=== PATIENT | male | born 1950 | race Caucasian/White ===

== ENCOUNTER 2019-01-28 12:29 | Inpatient (IN) ==
[2019-01-28] MEDS ORDERED: NS 1,000 ML IV ONE (13:06)
[2019-01-28] MEDS ORDERED: ASPIRIN PO ONE (13:06)
[2019-01-28 13:18] LABS: BASO# 0.03 X1000 (0.0-0.2); BASO% 0.5 % (0.0-0.8); EOS# 0.07 X1000 (0.0-0.7); EOS% 1.1 % (0.0-10.0); HEMATOCRIT 43.4 % (42.0-52.0); IMM GRAN# 0.02 X1000 (0.0-0.04); IMM GRAN% 0.3 % (0.0-0.5); LYMPH# 1.67 X1000 (1.2-3.4); LYMPH% 26.7 % (20.5-51.1); MCH 30.5 PG (27-31); MCHC 34.6 g/dL (33-37); MCV 88.2 FL (81-99); MONO# 0.66 X1000 (0.11-0.59); MONO% 10.5 % (1.7-9.3); MPV 10.3 FL (7.4-10.4); NEUT# 3.81 X1000 (1.4-6.5); NEUT% 60.9 % (42.2-75.2); PLT 231 X1000 (130-400); RBC 4.92 XMIL (4.7-6.1); RDW 13.9 % (11.5-14.5); WBC 6.26 X1000 (4.8-10.8)
[2019-01-28 13:40] LABS: INR 0.97; PROTIME 13.4 Seconds (11.0-16.0)
[2019-01-28 13:41] LABS: PTT 28.9 Seconds (22.3-41.8)
--- NOTE | 2019-01-28 13:50 | EKG Report ---
Test Performed on : 01/28/2019 12:37:27 PM Test Reason : CVA Blood Pressure : / mmHG Vent. Rate : 113 BPM Atrial Rate : 113 BPM P-R Int : 148 ms QRS Dur : 080 ms QT Int : 332 ms P-R-T Axes : 079 080 069 degrees QTc Int : 455 ms Sinus tachycardia. with premature atrial complexes. Otherwise normal ECG No previous ECGs available Unconfirmed Result
--- NOTE | 2019-01-28 13:55 | Diag Imaging Result Doc PS360 ---
EXAM: CT HEAD W/O CONTRAST - 01/28/2019 HISTORY: stroke symptoms TECHNIQUE: CT head without contrast COMPARISON: None. FINDINGS: There is no evidence of intracranial hemorrhage, mass effect, midline shift, or hydrocephalus. There is a chronic appearing lacunar infarct at the left caudate nucleus. There are two subtle small low-density areas at the left parietal lobe which may represent small infarcts, the ages of which are nonspecific. There are some atherosclerotic calcifications noted at the base of the brain. There is no evidence of skull fracture. Visualized portions of paranasal sinuses and mastoid air cells appear clear. IMPRESSION: Apparent old lacunar infarct at left caudate nucleus. Suggestion of small infarcts at left posterior parietal lobe. These are of nonspecific ages, but could be recent. If further imaging evaluation is desired, MRI is recommended. No hemorrhage or mass effect. This exam was performed using automated exposure control, adjustment of mA or kV according to patient size, and/or use of iterative reconstruction technique. Electronically signed by Willian Valladares 01/28/2019 1:53 PM
--- NOTE | 2019-01-28 13:57 | Diag Imaging Result Doc PS360 ---
EXAM: CHEST-PORTABLE - 01/28/2019 HISTORY: CVA TECHNIQUE: Portable chest COMPARISON: 01/28/2019 FINDINGS: Heart size is normal. The lungs appear essentially clear. There is no pleural effusion or pneumothorax identified. IMPRESSION: No evidence of acute disease. Electronically signed by Willian Valladares 01/28/2019 1:54 PM
[2019-01-28 13:58] LABS: AGAP 13; ALBUMIN 4.3 g/dL (3.5-5.0); ALKALINE PHOSPHATASE 94 U/L (32-122); BUN 10 mg/dL (8-22); CALCIUM 9.1 mg/dL (8.8-10.2); CHLORIDE 99 mmol/L (98-107); COSMO 277; ESTIMATED GFR > 60; GLUCOSE 142 mg/dL (70-104); GOT 19 U/L (10-34); GPT 24 U/L (10-44); MAGNESIUM 1.8 mg/dL (1.5-2.7); POTASSIUM 4.4 mmol/L (3.5-5.1); SODIUM 138 mmol/L (136-145); TCO2 26 mmol/L (25-35); TOTAL PROTEIN 6.5 g/dL (6.3-8.3)
--- NOTE | 2019-01-28 15:04 | PROVIDER DOCUMENTATION ---
This chart was entered by Gemini Bishop Scribe, acting as scribe for Guy Dugan MD. HPI-Neurological Disorder - General Chief Complaint: Stroke-Like Symptoms Stated Complaint: POSS STROKE Time Seen by Provider: 01/28/19 12:36 Source: patient, family ( and daughter) Allergies/Adverse Reactions: Patient Allergies Allergy/AdvReac Type Severity Reaction Status Date / Time Penicillins Allergy ANAPHYLAXIS Verified 01/28/19 12:43 - History of Present Illness-Neuro Nature of Presenting Problem: 68 yowm presents to the ed via pov with and daughter. sts pt has been having burning AKINS and rt sided weakness and unable to ambulate normally intermittently for 1 month. pt was working outside yesterday and got hot and sx worsened. sts weakness was more predominate and took longer to resolve then has in the past. pt on exam is a/o x4 and can follow commands and answer all questions without difficulty. Headache Location: reports: frontal Severity: reports: moderate Onset/Duration: reports: other (1 month) Timing: reports: intermittent Context: reports: facial droop (mild), falling Approximate time patient was last seen normal?: 00:00 (1 month prior) Character of Altered Mental Status: reports: N/A Any recent trauma/injury?: reports: none Character of Deficits: reports: new weakness New weakness or altered sensation location:: reports: RUE, RLE, right facial Cognitive Baseline: alert, oriented x3 Gait Baseline: walks without assistance Associated Symptoms: reports: short of breath, headache, numbness in legs/feet, weakness. denies: slurred speech, vomiting Similar Symptoms Previously?: Yes (for last month) Recently seen or treated by another doctor?: No Review of Systems - Adult - REVIEW OF SYSTEMS - ADULT ROS:: ROS per family () Constitutional: denies: chills, fever Eyes: denies: blurred vision, double vision Ears, Nose, Mouth & Throat: reports: no symptoms reported Cardiovascular: denies: chest pain, palpitations Respiratory: reports: shortness of breath. denies: cough, wheezing Gastrointestinal: denies: abdominal pain, diarrhea, nausea, rectal bleeding Genitourinary: reports: no symptoms reported Musculoskeletal: reports: see HPI, muscle weakness. denies: back pain, neck pain Integumentary: reports: no symptoms reported Neurological: reports: see HPI, headache/migraines. denies: dizziness/vertigo, slurred speech Psychiatric: reports: no symptoms reported Endocrine: reports: no symptoms reported Hematologic/Lymphatic: reports: no symptoms reported Allergic/Immunologic: reports: no symptoms reported All Other Systems: Reviewed and Negative Past History - Adult - PAST MEDICAL HISTORY-ADULT Review of Records: reports: Old Records Reviewed, Nursing Assessment Review, Medications Reviewed, Social history reviewed & non-contributory. Major Childhood Illnesses: reports: denies history Cardiovascular: reports: HTN Respiratory: reports: denies history Gastrointestinal: reports: denies history Genitourinary: reports: denies history Musculoskeletal: reports: denies history Hand Dominance: Right Handed Neurological: reports: denies history Psychiatric: reports: denies history Endocrine/Immune: reports: Diabetes Diabetes Type: Type 2 Other Conditions: reports: denies history - PRIOR SURGERIES/PROCEDURES Surgical/Procedure History: reports: reviewed, not pertinent - IMMUNIZATION STATUS Childhood Immunizations: See Nurse Assessment Flu Vaccine: See Nurse Assessment - FAMILY HISTORY Family History: reviewed, not pertinent - SOCIAL HISTORY Smoking: denies Substance Use: denies Living Situation: family Physical Exam- Neurological - Physical Exam-Neuro Initial Vital Signs Reviewed: Yes General Appearance: appears well, alert, obese Eye Exam: bilateral eye: normal inspection, PERRL, EOMI HENMT: moist mucous membranes, normal ENT inspection Head Injury: no evidence of injury Neck: non-tender, full range of motion, normal inspection. 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 Exam: normal hearing, normal speech, PERRL, facial weakness (minimal on lower rt sided) Coordination/Gait: negative: normal gait (drags rt foot) Motor/Sensory: pronator drift (R) (mild), pronator drift (L) (mild), weak motor strength RUE (3/5), weak motor strength RLE Neurologic: rn family practice II-XII nml as tested, facial droop (mild weak right angle mouth) , motor weakness Integumentary: normal color, normal turgor, warm/dry Psych/Mental Status: oriented x 3 - Glascow Coma Scale Best Eye Response: (4) open spontaneously Best Verbal Response: (5) oriented Best Motor Response: (6) obeys commands Progress - PLAN OF CARE/RESULTS Progress/Plan/Lab Results: Vital Signs - 8 hr 01/28/19 12:35 Temperature 98.0 F Pulse Rate 109 H Respiratory Rate 17 Blood Pressure 148/108 O2 Sat by Pulse Oximetry 96 Laboratory Results - last 24 hr 01/28/19 01/28/19 01/28/19 12:45 12:45 12:45 WBC 6.26 RBC 4.92 Hgb 15.0 Hct 43.4 MCV 88.2 MCH 30.5 MCHC 34.6 RDW Std Deviation 13.9 Plt Count 231 MPV 10.3 Immature Gran % (Auto) 0.3 Neut % (Auto) 60.9 Lymph % (Auto) 26.7 Foard % (Auto) 10.5 H Eos % (Auto) 1.1 Baso % (Auto) 0.5 Immature Gran # (Auto) 0.02 Neut # (Auto) 3.81 Lymph # (Auto) 1.67 Foard # (Auto) 0.66 H Eos # (Auto) 0.07 Baso # (Auto) 0.03 PT 13.4 INR 0.97 PTT (Actin FS) 28.9 Sodium 138 Potassium 4.4 Chloride 99 Carbon Dioxide 26 Anion Gap 13 BUN 10 Creatinine 1.0 Estimated GFR/1.73 m2 > 60 BUN/Creatinine Ratio 10 Glucose 142 H Calculated Osmolality 277 Calcium 9.1 Magnesium 1.8 Total Bilirubin 0.40 AST 19 ALT 24 Alkaline Phosphatase 94 Troponin T Total Protein 6.5 Albumin 4.3 Globulin 2.0 Albumin/Globulin Ratio 2.0 01/28/19 12:45 WBC RBC Hgb Hct MCV MCH MCHC RDW Std Deviation Plt Count MPV Immature Gran % (Auto) Neut % (Auto) Lymph % (Auto) Foard % (Auto) Eos % (Auto) Baso % (Auto) Immature Gran # (Auto) Neut # (Auto) Lymph # (Auto) Foard # (Auto) Eos # (Auto) Baso # (Auto) PT INR PTT (Actin FS) Sodium Potassium Chloride Carbon Dioxide Anion Gap BUN Creatinine Estimated GFR/1.73 m2 BUN/Creatinine Ratio Glucose Calculated Osmolality Calcium Magnesium Total Bilirubin AST ALT Alkaline Phosphatase Troponin T < 0.010 Total Protein Albumin Globulin Albumin/Globulin Ratio Orders Category Date Time Status Cardiac Monitoring DIRECTED Care 01/28/19 12:44 Active Saline Loc NOW Care 01/28/19 12:44 Active Saline Loc NOW Care 01/28/19 13:04 Active CHEST-PORTABLE [RAD] Stat Exams 01/28/19 13:[address] HEAD W/O CONTRAST [CT] Stat Exams 01/28/19 13:35 Completed CBC WITH ELECTRONIC DIFF [HEME] Stat Lab 01/28/19 12:45 Completed COMPREHENSIVE METABOLIC PANEL [CHEM] Stat Lab 01/28/19 12:45 Completed MAGNESIUM [CHEM] Stat Lab 01/28/19 12:45 Completed PROTIME WITH INR [COAG] Stat Lab 01/28/19 12:45 Completed PTT [COAG] Stat Lab 01/28/19 12:45 Completed TROPONIN T Stat Lab 01/28/19 12:[address] W/POSS RFLX CULT [URINALYSIS] Stat Lab 01/28/19 13:05 Uncollected 0.9% Sodium Chloride Inj [Ns] 1,000 ml Med 01/28/19 13:06 Discontinued IV 999 mls/hr Aspirin Med 01/28/19 13:06 Discontinued 325 mg PO NOW ONE EKG [EKG] Stat Ther 01/28/19 13:04 Draft No TPA given due to sx being present 1 month Result Diagrams: 01/28/19 12:45 01/28/19 12:45 - REASSESSMENT Reassessment #1 Time Reassessed: 13:16 Status: unchanged Reassessment Comment: dr dugan at bedside Reassessment #2 Time Reassessed: 14:48 (pt is on cell phone) Status: improving - EKG 1 Time of EKG reading by physician:: 12:37 EKG Read and Signed by:: Guy Dugan EKG Interpretation (*Must complete 3 of following elements*): Normal Rate: 113 Rhythm: sinus tachycardia with pac [place]: normal QRS: normal [place] Interval: normal ST Wave: normal - XRAY 1 XRAY: Bilateral XRAY Study: Chest Impression: See EMR Report (EXAM: CHEST-PORTABLE - 01/28/2019 HISTORY: CVA TECHNIQUE: Portable chest COMPARISON: 01/28/2019 FINDINGS: Heart size is normal. The lungs appear essentially clear. There is no pleural effusion or pneumothorax identified. IMPRESSION: No evidence of acute disease. Elec tronically signed by Willian Valladares 01/28/2019 1:54 PM 01/28/19 1354 Interpreting Physician: Willian Valladares MD Dictated Date/Time: 01/28/19 1353 cc: Guy Dugan MD; Juan M Perales) - CT/MRI 1 CT Study: Head Impression: See EMR Report (EXAM: CT HEAD W/O CONTRAST - 01/28/2019 HISTORY: stroke symptoms TECHNIQUE: CT head without contrast COMPARISON: None. FINDINGS: There is no evidence of intracranial hemorrhage, mass effect, midline shift, or hydrocephalus. There is a chronic appearing lacunar infarct at the left caudate nucleus. There are two subtle small low-density areas at the left parietal lobe which may represent small infarcts, the ages of which are nonspecific. There are some atherosclerotic calcifications noted at the base of the brain. There is no evidence of skull fracture. Visualized portions of paranasal sinuses and mastoid air cells appear clear. IMPRESSION: Apparent old lacunar infarct at left caudate nucleus. Suggestion of small infarcts at left posterior parietal lobe. These are of nonspecific ages, but could be recent. If further imaging evaluation is desired, MRI is recommended. No hemorrhage or mass effect. This exam was performed using automated exposure control, adjustment of mA or kV according to patient size, and/or use of iterative rec onstruction technique. Electronically signed by Willian Valladares 01/28/2019 1:53 PM 01/28/19 1353 Interpreting Physician: Willian Valladares MD Dictated Date/Time: 01/28/19 1346 cc: Guy Dugan MD; Juan M Perales) - CONSULTS/PCP/HOSPITALIST Notification #1 *Consult/PCP/Hospitalist*: hospitalist dinora bryan Time Discussed: 14:48 Consult Disposition: Admit Departure - Departure Date of Disposition Decision: 01/28/19 Time of Disposition Decision: 15:03 DIAGNOSIS: Acute ischemic stroke, Recurrent strokes, Gait disturbance Disposition: ADMITTED INPATIENT 09 Certified Medical Emergency: Emergent Condition: Stable Referrals and Follow-Ups: Juan M Perales [Primary Care Provider] - - Critical Care Note This patient required my direct & personal management of CC.: Yes Total Time (mins): 38 Critical Care Statement: This patient required my direct personal management to treat or rule out processes, the absence of which, could potentiallly result in sudden, clinically significant life or limb threatening deterioration. Attestation - Physician/ DELORES Attestation Patient care was provided by Advanced Practice Provider:: No The physician spent face to face time with patient:: Yes Advanced Practice Provider documentation review:: Supervising physician onsite and consulted in the evaluation and care of this patient. The physician did have a face to face encounter with the patient. - NIH Stroke Scale NIH Type: Initial Evaluation Level of Consciousness: 0-Alert LOC Questions (ask month and age): 0-Answers Both Correctly LOC Commands (ask to open & close eyes;make a fist, let go): 0-Obeys Both Correctly Best Gaze (horizontal eye movement): 0-Normal Visual (use finger movement, counting or visual threat): 0-No Visual Loss Facial Palsy (show teeth or raise eyebrows & close eyes tght: 1-Minor Paralysis Motor Function-left arm: 0-Normal Motor Function-right arm: 1-Drift Motor Function-left le-Normal Motor Function-right le-Drift Limb Ataxia([id number], or heel to perez): 0-No Ataxia Sensory(pin prick to face,arms,trunk,legs-compare side/side): 0-No Ataxia Best Language(name item/read sentence.Ex-Down to Earth): 0-No Aphasia Dysarthria(Pt read words or say words Ex.Mama,Tip-Top,Thanks: 0-Normal Articulation Extinction and Inattention: 0-Normal NIH Total Score: 3 This chart was documented by the indicated scribe, (Gemini Bishop Scribe) and accurately reflects the services I performed and decisions made by me, Guy Dugan MD, as attested by the provider's signature.
[2019-01-28] MEDS ORDERED: NS 1,000 ML IV SCH (16:45)
--- NOTE | 2019-01-28 18:19 | HISTORY AND PHYSICAL ---
PRIMARY CARE PHYSICIAN: Juan M Perales MD. CHIEF COMPLAINT: Right-sided weakness. HISTORY OF PRESENT ILLNESS: Mr. Romero is a 68-year-old male who presents to the ER today with complaints of right-sided weakness that has been worsening over the last couple of months. The family at bedside states that on Thursday he was out in his shed. He was working. He started getting very hot, decided to come in and was only able to make it to the door into the house without having to sit down on the floor. Family states that a few months ago he started having these symptoms of right-sided weakness where he would have these spells where he was extremely weak and was unable to move his right lower extremity at times. The family and patient denies any confusion, any difficulty with speech or altered mental status. The patient does have past medical history of hypertension, diabetes, COPD, hyperlipidemia. Family states that they noticed today and yesterday that he was having difficulty getting words out. The patient is lying in the ER bed. He is awake, alert, and oriented. He is unable to completely answer all my questions because of dysphagia. There is no droop noted. He does have a large amount of weakness noted to the right hand and right leg area. Pupils are equal, round, reactive to light. There is a little dysconjugate gaze noted to the left lower peripheral field. The patient's speech is not slurred. The patient denies any chest pain, palpitations. Denies any difficulty urinating or hematuria. Denies any problems with constipation or diarrhea. Denies any nausea, vomiting. There is no edema noted to the bilateral lower extremities. LABORATORY FINDINGS: Show a elevated glucose of 142. Chest x-ray is negative. Head CT shows an apparent old lacunar infarct at the left caudate nucleus. It also shows small infarcts at the left posterior parietal lobe and these could be recent. PAST MEDICAL HISTORY: Hypertension, diabetes, COPD, hyperlipidemia, head laceration 40 years ago. PAST SURGICAL HISTORY: None. FAMILY HISTORY: Mother at a young age from a brain aneurysm. Father from COPD. SOCIAL HISTORY: The patient lives in the [facility]. He is retired as of 3 weeks ago. He used to drive a truck. He denies any smoking, alcohol or illicit drug abuse. He does live with his . ALLERGIES: Penicillin. MEDICATIONS: The home medication reconciliation has not been performed in the computer. Patient states that he takes metformin 1000 mg p.o. daily, Bydureon insulin injection once a week, Zantac daily, lisinopril 10 mg p.o. daily, atorvastatin daily. LABS AND DIAGNOSTICS: White blood cell count 6.26, hemoglobin 15, hematocrit 43.4, platelet count is 231,000. PT is 13.4, INR is 0.97, PTT is 28.9. Sodium is 138, potassium is 4.4, chloride 99, carbon dioxide 26, anion gap 10, BUN is 10, creatinine is 1. GFR is greater than 60, glucose is 142, calcium 9.1, magnesium 1.8. Total bilirubin is 0.4, AST is 19, ALT is 24, alkaline phosphatase is 94. Troponin is less than 0.01. Chest x-ray shows no evidence of acute disease. Head CT shows apparent old lacunar infarct at the left caudate nucleus and suggestion of small infarcts at the left posterior parietal lobe. These are of nonspecific ages but could be recent. MRI is recommended. REVIEW OF SYSTEMS: A 10 point review of systems has been obtained and are negative except what is stated above in HPI. PHYSICAL EXAMINATION: VITAL SIGNS: Temperature 98 degrees, pulse rate 109, respiratory rate 17, blood pressure is 148/108, O2 saturation is 96% on room air. Weight is 210 pounds. Height 5 feet 9 inches. GENERAL: This is a 68-year-old male. He is lying in the ER stretcher. He is in no acute distress at this present time. He is well nourished and well developed. HEENT: Atraumatic, normocephalic. Pupils equal, round, reactive to light. Sclerae is anicteric. Mucous membranes are moist. NECK: Supple. No lymphadenopathy. Trachea is midline. No JVD. No thyromegaly. No bruits. CARDIOVASCULAR: Regular rate and rhythm. No murmurs, gallops, or rubs appreciated. There are some notable PACs noted to the monitor. Heart rate is normal sinus rhythm, 100. RESPIRATORY: Lung sounds are clear with equal chest excursion. Respirations are nonlabored. No accessory muscle usage. GASTROINTESTINAL: Abdomen is soft, nontender, nondistended. Bowel sounds are present x4. NEUROLOGIC: The patient is awake, alert, and oriented. He is able to answer all my questions appropriately. He does have some difficulty getting the words out, occasionally, but he is completely oriented. The patient is able to move all extremities well. Follow all commands. MUSCULOSKELETAL: Decreased strength noted to the right arm and right leg region. There are no deformities. EXTREMITIES: No clubbing, no cyanosis, no edema. DP and PT pulses are present and palpable. SKIN: Warm, dry, and intact with no rashes, bruises. No diaphoresis. ASSESSMENT AND PLAN: 1. Cerebrovascular accident. We are going to admit this patient to the medical floor. We are going to start this patient on Lovenox 1 mg/kg subcu q.12 hours. We are going to get an MRI, MRA of the brain. We are going to get Carotid Doppler studies. We are also going to get an echocardiogram. I have consulted Dr. Hanna who will see the patient. I am going to recheck his labs in the morning and start him back on his cholesterol medication. 2. Diabetes. The patient's home medication reconciliation has not been performed. I have started him on Accu-Cheks before meals and at bedtime. We will provide him with sliding scale insulin as needed per protocol and start him on a diabetic diet. 3. Hypertension. The patient is on lisinopril at home. The patient has had an old stroke and possibly an acute stroke. Blood pressure is stable at this time. We will restart his lisinopril as soon as the home medication reconciliation has been performed. 4. Chronic obstructive pulmonary disease. The patient is not short of breath at this time. He does not have any congestion noted. He does not take breathing treatments at home. We will just monitor this. 5. Hyperlipidemia. The patient is on atorvastatin at home. I have started atorvastatin 40 mg at bedtime. 6. Deep venous thrombosis prophylaxis. The patient is on Lovenox for his acute stroke this should cover him for deep venous thrombosis prophylaxis. 7. Gastrointestinal prophylaxis. I will start him on omeprazole 20 mg p.o. q.a.m. We have admitted this patient to the medical floor. We placed him on a shelter monitor. We are going to get an MRI and MRA of the brain. We are getting a carotid ultrasound, echocardiogram. Consult Dr. Hanna to see the patient. Start him on anticoagulation of Lovenox b.i.d. I also restarted his home cholesterol medication. I have ordered physical therapy, occupational therapy and speech therapy to see the patient. Start him on a diabetic diet. We are going to get a bedside swallow evaluation prior to giving him anything p.o. All other further treatment and recommendations pending hospital course and lab data. Dictated by SILVANO Kraft for Inocencio Yu MD cc: MD Inocencio Leal MD [facility]
--- NOTE | 2019-01-28 19:06 | HISTORY AND PHYSICAL ---
I saw the patient [id number] and fully agree with the assessment and plan of nurse practitioner Kassi Rosado. This is a 68-year-old gentleman who has history of stroke-like symptoms with right- sided weakness and having some headache for the past month or longer. He was noted to have old lacunar infarct at left caudate nucleus on CT head. The patient appears to have had a stroke and, therefore, we are going to admit him to the med/surg floor. He will get workup including carotid Doppler ultrasound, echocardiogram and brain MRI. Furthermore, we will get him physical therapy and hopefully transfer him early next week to rehab, if he remains stable. cc: Inocencio Yu MD
[2019-01-28] MEDS: LIPITOR PO SCH ×2 (19:46→20:55)
[2019-01-28] MEDS: LOVENOX SUBQ SCH (19:46)
[2019-01-28 21:59] LABS: BILIRUBIN URINE NEGATIVE (NEGATIVE); BLOOD URINE NEGATIVE (NEGATIVE); CLARITY CLEAR (CLEAR); COLOR YELLOW; GLUCOSE URINE NEGATIVE (NEGATIVE); KETONE URINE NEGATIVE (NEGATIVE); LEUKOCYTES URINE NEGATIVE (NEGATIVE); NITRITE URINE NEGATIVE (NEGATIVE); PH URINE 6.5; PROTEIN URINE NEGATIVE (NEGATIVE); UROBILINOGEN URINE NORMAL
[2019-01-28 22:02] LABS: URINE BACTERIA 2+ /HFP; URINE CAST NONE SEEN /LPF; URINE CRYSTAL NONE SEEN /HPF; URINE EPITHELIAL CELLS >10 /HPF (<10); URINE SMALL ROUND CELLS TRANSITIONAL PRESENT; URINE SOURCE CLEAN CATCH; URINE WBC <10 /HPF (<10); URINE YEAST NONE SEEN /HPF
[2019-01-28 22:03] LABS: URINE RBC <10 /HPF (<10)
[2019-01-28] MEDS: HUMULIN R (PARKWAY) SUBQ SCH (22:09)
[2019-01-29] MEDS: LOVENOX SUBQ SCH (05:06)
[2019-01-29 06:45] LABS: BASO# 0.03 X1000 (0.0-0.2); BASO% 0.5 % (0.0-0.8); EOS% 1.5 % (0.0-10.0); HEMATOCRIT 42.4 % (42.0-52.0); HEMOGLOBIN 14.6 g/dL (14.0-18.0); IMM GRAN# 0.01 X1000 (0.0-0.04); IMM GRAN% 0.2 % (0.0-0.5); LYMPH# 1.36 X1000 (1.2-3.4); LYMPH% 20.8 % (20.5-51.1); MCH 30.3 PG (27-31); MCHC 34.4 g/dL (33-37); MONO# 0.75 X1000 (0.11-0.59); MONO% 11.5 % (1.7-9.3); MPV 10.6 FL (7.4-10.4); NEUT# 4.28 X1000 (1.4-6.5); NEUT% 65.5 % (42.2-75.2); PLT 225 X1000 (130-400); RBC 4.82 XMIL (4.7-6.1); RDW 13.5 % (11.5-14.5); WBC 6.53 X1000 (4.8-10.8)
[2019-01-29] MEDS: HUMULIN R (PARKWAY) SUBQ SCH ×4 (06:57→20:29)
[2019-01-29 07:08] LABS: HEMOGLOBIN A1C 5.5 % (4.8-6.0)
[2019-01-29 07:13] LABS: AGAP 10; ALBUMIN 4.1 g/dL (3.5-5.0); ALKALINE PHOSPHATASE 91 U/L (32-122); BUN 10 mg/dL (8-22); CALCIUM 8.3 mg/dL (8.8-10.2); CHLORIDE 103 mmol/L (98-107); COSMO 274; CREATININE 0.8 mg/dL (0.7-1.2); ESTIMATED GFR > 60; GLUCOSE 114 mg/dL (70-104); GOT 17 U/L (10-34); GPT 21 U/L (10-44); POTASSIUM 4.4 mmol/L (3.5-5.1); SODIUM 137 mmol/L (136-145); TCO2 24 mmol/L (25-35)
[2019-01-29] MEDS ORDERED: NON-FORMULARY MED (Fluticasone/Umeclidin/Vilanter [Trelegy Ellipta 100-62.5-25] 1 PUFF) INH SCH (10:00)
--- NOTE | 2019-01-29 12:45 | PROGRESS NOTE ---
DATE: 01/29/2019 SUBJECTIVE: Patient denies having any acute complaints this morning, and he is actually better with some increased strength in his right upper extremity. OBJECTIVE: Vital Signs: Temperature 97.7 degrees, pulse 98 per minute, respiratory rate 20 per minute, blood pressure 155/86, pulse oximetry 98% on room air. General: Patient is alert and oriented x3. He does not appear to be in any acute distress. Cardiovascular System: First and second heart sounds are audible without murmurs or gallops. Respiratory System: Bilateral lung air entry is good without any rales or rhonchi. Gastrointestinal System: Abdomen is Benign. Neurologic: Right upper extremity minimal motor weakness is present. No other significant findings were noted. DIAGNOSTIC DATA: CBC and chemistry this morning were nondiagnostic. IMPRESSION: 1. Cerebrovascular accident. 2. Type 2 diabetes mellitus. 3. Hypertension. 4. Chronic obstructive pulmonary disease. 5. Morbid obesity. 6. Dyslipidemia. PLAN: The patient has been admitted to the medical floor and has been placed on electronic device monitor, which will be continued. MRI and MRA of the brain along with carotid Doppler ultrasound and echocardiogram have been ordered and are pending at the time of this dictation. He has been initiated on Lovenox 1 mg/kg twice daily which I am going to discontinue since I do not see any risk of venous thromboembolism and instead would place him on aspirin 25 mg orally once daily, along with clopidogrel 75 mg daily. Also, we will continue with atorvastatin 40 mg daily at bedtime, and give him IV fluids along with current insulin regimen as per protocol to treat his diabetes. We will continue with lisinopril for blood pressure control, and he might be able to go home in the next 2 days once these test results are back. We can probably arrange outpatient physical therapy for him since he is pretty active. cc: Inocencio Yu MD
[2019-01-29] MEDS: PLAVIX PO SCH (13:33)
[2019-01-29] MEDS: ASPIRIN PO SCH (13:33)
--- NOTE | 2019-01-29 13:57 | Extremity Venous Study ---
EXAM: Carotid Ultrasound INDICATION: cva TECHNIQUE: COMPARISON: None. FINDINGS: Right: There is patchy atherosclerotic plaque with calcification involving the distal CCA, carotid bulb, and proximal ECA. The peak systolic velocity measures 148, 109, 83, 82, 98, 77, and 149 cm/s at the right subclavian artery, CCA, bifurcation, proximal ICA, mid ICA, distal ICA, and ECA, respectively. There is antegrade flow in the vertebral artery. The carotid ratio is 0.90, which would indicate 0-39% stenosis. Left: The left ICA becomes completely occluded near its origin. There is no appreciable Doppler flow associated with the left ICA. There is patchy calcification at the proximal ECA. The peak systolic velocity measures 211, 91, 55, and 223 cm/s at the left subclavian artery, CCA, bifurcation, and ECA, respectively. There is antegrade flow in the vertebral artery. IMPRESSION: Bilateral atherosclerotic disease as described with complete occlusion of the left ICA. Electronically signed by Elan Stallings 01/29/2019 1:55 PM
--- NOTE | 2019-01-29 14:54 | PROGRESS NOTE ---
DATE: 01/29/2019 Critical care assistance team called for stroke-like symptoms. Patient assessed. Was nonverbal. Significant right facial droop. Right upper extremity paralysis. Pupils were equal and reactive, but would not track or focus on speaker. Reactive Babinski. Bilateral extremities moved spontaneously. Eventually, the right upper extremity would try and contract to pain. According to the family, he was eating and also had emesis or vomiting after eating when this started to happen. Airway was patent. Lungs were clear at the time. Vital signs were stable. 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 Dr. Stern with General Surgery notified by phone. Update given. He recommended a CTA of the head and neck which has been ordered, and we will transfer patient to the ICU at [facility]. Currently, he continues to be nonverbal and Neurology has also been consulted. Dictated by SILVANO Chavez for Inocencio Yu MD cc: SILVANO Chavez MD
--- NOTE | 2019-01-29 14:58 | ECHO REPORT ---
ORDER DATE: 01/28/2019 INDICATION: CVA. FINDINGS: 1. Right atrium appears normal in size. 2. There is trace tricuspid regurgitation. Insufficient data to estimate RV systolic pressure. 3. Poor visualization of the right ventricle but overall appears to have normal systolic function. 4. No significant pulmonic insufficiency. 5. Borderline mild left atrial enlargement with a volume index of 28. 6. No mitral valve prolapse. Mild mitral regurgitation. No evidence of mitral stenosis. 7. Normal LV size, end-diastolic dimension of 5.1. Normal wall thicknesses with a posterior and interventricular septal wall thickness 1.1 and 1.0 cm respectively. Normal LV systolic function. The estimated EF appears to be greater than 55%. Optison contrast was used. 8. Aortic valve is poorly visualized but appears to open reasonably well with no clear evidence of stenosis. The left ventricular outflow track was difficult to visualize. There is no Doppler evidence of stenosis or significant insufficiency. 9. Aorta appears normal in visualized segments. 10. No pericardial effusion seen. cc: Quinton Westfall MD
--- NOTE | 2019-01-29 15:48 | PROGRESS NOTE ---
DATE: 01/29/2019 Mr. Romero is a 68-year-old gentleman who has been admitted with repeated strokes with right-sided weakness. 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 Just a couple of hours ago, he started having acute onset of stroke-like symptoms with nonresponsiveness, along with right upper extremity paralysis. The patient has been getting aspirin and Plavix orally and Dr. Stern from General surgery has been notified. He has recommended for CT angiogram of the head and neck, which has been ordered. The patient will be transferred to intensive care unit at [facility] for further care. Neurology has already been consulted who will follow the patient as well. cc: Inocencio Yu MD
[2019-01-29] MEDS: NS 1,000 ML IV SCH ×2 (15:56→19:19)
[2019-01-29] MEDS ORDERED: GLUCOPHAGE PO SCH (17:00)
[2019-01-29 17:50] LABS: URINE SOURCE CATH
[2019-01-29 17:57] LABS: BILIRUBIN URINE NEGATIVE (NEGATIVE); BLOOD URINE NEGATIVE (NEGATIVE); COLOR YELLOW; GLUCOSE URINE TRACE mg/dL (NEGATIVE); KETONE URINE NEGATIVE (NEGATIVE); LEUKOCYTES URINE NEGATIVE (NEGATIVE); NITRITE URINE NEGATIVE (NEGATIVE); PH URINE 7.5; PROTEIN URINE NEGATIVE (NEGATIVE); SP GRAVITY URINE 1.015; TURBIDITY URINE CLEAR (CLEAR); UROBILINOGEN URINE NORMAL (NORMAL)
[2019-01-29 17:58] LABS: UR EPITHELIAL CELLS <10 /HPF (<10); URINE BACTERIA NEGATIVE /HPF; URINE RBC <10 /HPF (<10); URINE WBC <10 /HPF (<10)
--- NOTE | 2019-01-29 18:53 | Diag Imaging Result Doc PS360 ---
EXAM: CT ANGIOGRAM HEAD/NECK INDICATION: CVA TECHNIQUE: This exam was performed using automated exposure control, adjustment of mA or kV according to patient size, and/or use of iterative reconstruction technique. Thin section axial images and 3-D MIPS were obtained. COMPARISON: None. FINDINGS: NECK: There is focal complete occlusion of the left ICA proximally. Shortly thereafter is reconstituted. However, it has a narrow lumen throughout its course in the neck. There is mild atherosclerotic calcification at the right carotid bulb with only minimal narrowing. The cervical ICA on the right is widely patent thereafter. No dissection or vascular malformation is appreciated, otherwise. The left vertebral artery is slightly dominant. Both vertebral arteries are widely patent throughout their cervical courses. HEAD: There is a nonocclusive filling defect seen in the left carotid siphon that extends into the M1 segment of the left MCA suggesting thrombus. The distal branches of the left MCA are truncated as compared to the right, especially in the right parietal lobe region. This is likely an area of acute infarct. There is mild atherosclerotic calcification at the right carotid siphon but it remains patent. There is no evidence of flow-limiting stenosis involving the right MCA. The ACAs and curriculum manager exhibit no flow-limiting stenosis. IMPRESSION: 1.Focal complete occlusion of the proximal ICA on the left with reconstitution. However, the cervical ICA remains diminutive thereafter. 2.Threadlike filling defects seen in the intracranial carotid siphon on the left that extends up and involves the left MCA. This probably represents thrombus. 3.Significant truncation of the left MCA distal branches mainly involving the left parietal lobe. This is probably an area of acute infarct. Electronically signed by Elan Stallings 01/29/2019 6:51 PM
--- NOTE | 2019-01-29 19:25 | EKG Report ---
Test Performed on : 01/29/2019 2:00:49 PM Test Reason : cva Blood Pressure : / mmHG Vent. Rate : 109 BPM Atrial Rate : 109 BPM P-R Int : 146 ms QRS Dur : 078 ms QT Int : 342 ms P-R-T Axes : 080 085 079 degrees QTc Int : 460 ms Sinus tachycardia. with premature atrial complexes. Otherwise normal ECG When compared with ECG of 28-JAN-2019 12:37, (Unconfirmed) No significant change was found Confirmed by Juany Schwartz MD ([id number]) on 02/03/2019 8:34:33 AM
[2019-01-29] MEDS: LIPITOR PO SCH (20:41)
[2019-01-30] MEDS: NS 1,000 ML IV SCH ×4 (02:19→23:06)
[2019-01-30 05:59] LABS: AGAP 12; BUN 13 mg/dL (8-22); CALCIUM 8.9 mg/dL (8.8-10.2); CHLORIDE 100 mmol/L (98-107); COSMO 270; CREATININE 0.9 mg/dL (0.7-1.2); ESTIMATED GFR > 60; GLUCOSE 123 mg/dL (70-104); POTASSIUM 3.9 mmol/L (3.5-5.1); SODIUM 134 mmol/L (136-145); TCO2 22 mmol/L (25-35)
[2019-01-30] MEDS: HUMULIN R (PARKWAY) SUBQ SCH ×4 (06:14→20:17)
--- NOTE | 2019-01-30 07:34 | GENERAL SURGERY CONSULTATION ---
DATE: 01/30/2019 REQUESTING PHYSICIAN: Hospitalist Service. REASON FOR CONSULTATION: 100% occlusion of the left internal carotid artery. HISTORY OF PRESENT ILLNESS: A 68-year-old gentleman who presented to [place] ER with right-sided weakness that had been worsening. He was seen and was noted to have a CVA. He had a carotid Doppler that showed 100% occlusion of the left internal carotid. His overall status continued to decline, and had what almost looked like a repeat stroke. They had placed him on aspirin and Plavix. Further notes from the hospitalist at [place]. There was a discussion with Neurology in [place], who recommended just continued aspirin and Plavix. He was transferred to the ICU over here at [facility] for further evaluation. PAST MEDICAL HISTORY: Includes hypertension, diabetes, COPD, hyperlipidemia. PAST SURGICAL HISTORY: Includes head laceration repair. FAMILY HISTORY: Brain aneurysm, COPD. SOCIAL HISTORY: No alcohol, tobacco, or illicit drugs. ALLERGIES: Penicillin. MEDICATIONS: Home medications and MAR reviewed. REVIEW OF SYSTEMS: Difficult to obtain secondary to the patient's mental status. PHYSICAL EXAMINATION: Vital Signs: The patient is currently afebrile. His vital signs are stable. General: No acute distress. male. Neurological consistent with a recent stroke. HEENT: Normocephalic, atraumatic. Pupils equal, round, reactive to light. Mucous membranes moist. Oropharynx benign. Neck: Supple. Trachea midline. Cardiovascular: Regular rate and rhythm. Lungs: Grossly clear. Abdomen: Soft, nontender, nondistended. Extremities: Weakness noted on the right upper extremity and right lower extremity. There is some facial asymmetry noted neurologically. Vascular: All extremities perfused. Neurologic: As noted above. Skin: No signs of jaundice. LABORATORY DATA: Reviewed this morning. IMAGING: Including carotid ultrasound and CTA were reviewed and shows complete occlusion of the left internal system. ASSESSMENT AND PLAN: A 68-year-old gentleman with complete left-sided internal carotid artery occlusion with cerebrovascular accident. Complete occlusion of the left internal carotid artery. At this time, will just need to monitor him and keep him on aspirin and Plavix. No surgical indication can be done at this point given the complete occlusion. Will need to monitor how his neurologic status changes and progresses over time, but again, will just kind of follow with you. I appreciate the consult. cc: Sunny Stern MD
--- NOTE | 2019-01-30 07:57 | PROGRESS NOTE ---
DATE: 01/30/2019 SUBJECTIVE: This patient seems to be doing a little bit better compared with my evaluation yesterday night. Yesterday, he was not able to move his right side, and today his strength is around 3/5 on the right side. He is able to follow commands, but he is not able to communicate. He is able to say some words, but when I ask questions, he is not able to answer. He is aphasic. Yesterday night, our Internal Medicine team communicated with Neurology Department at [facility], and they have recommended to continue with antiplatelet medications. I do not think they asked for any acute intervention with the head and neck CT angiogram that showed a focal complete occlusion of the proximal ICA on the left, with reconstitution. However, the cervical ICA remains diminutive thereafter. Thread-like filling defect seen in the intracranial carotid siphon on the left that extends up and involves the MCA, which is probably a thrombus. Significant truncation of the left MCA distal branches, mainly involving the left parietal lobe, and this is probably the area of acute infarct. PHYSICAL EXAMINATION: Vital Signs: Temperature 98.2 degrees, pulse 98, respiratory rate 20, blood pressure 153/83, oxygen saturation 98 on 2 L of nasal cannula. HEENT: Head normocephalic. No trauma. PERRLA. Facial deviation. Neck: Supple. No JVD. Central trachea. Chest: Clear to auscultation. No wheezing. No rales. Abdomen: Soft, nontender, nondistended. No hepatosplenomegaly. Extremities: No edema, no clubbing, no cyanosis. Neurological: The patient is awake. He is alert. He is following commands. He is able to move his left side without any problem, but his strength on the right side is around 3/5 today. Yesterday night, he was not able to move at all. He is aphasic. He is able to say some words by himself. LABORATORY DATA: Sodium 134, potassium 3.9, chloride 100, bicarbonate 22, BUN 13, creatinine 0.9, glucose 123, calcium 8.3. ASSESSMENT AND PLAN: 1. Cerebrovascular accident involving the left middle cerebral artery territory. There is a complete occlusion of the internal carotid artery as well. We communicated with [facility], and talked to Neurology Department. They have recommended to continue with the same management. We are going to start this patient on physical therapy. We will do a bedside swallow evaluation to see how he does. Hopefully, he is going to be able to eat. He seems to be recovering, and he is moving more his right side, which is much better compared with yesterday night. He is following commands. Continue with current medications. 2. Type 2 diabetes. Hemoglobin A1c 5.5. Blood sugar under control. 3. Hypertension. We will continue with his home medications, and I will add medications as needed. 4. History of chronic obstructive pulmonary disease, not in exacerbation. Aware. 5. Obesity with a body mass index above 33. 6. Dyslipidemia. Continue with statins. This patient was transferred yesterday from [facility]. He had right-sided hemiparesis. He is still weak on the right side, but he is moving more. He seems to be following commands. We will monitor this patient closely. I will keep an eye on him in the intensive care unit, but probably in the afternoon or tomorrow, he can be transferred to the floor. cc: Tomás Elaine MD
[2019-01-30] MEDS: PRINIVIL PO SCH (08:47)
[2019-01-30] MEDS: ASPIRIN PO SCH (08:47)
[2019-01-30] MEDS: PLAVIX PO SCH (08:47)
[2019-01-30] MEDS: TYLENOL PO PRN ×2 (09:28→21:01)
--- NOTE | 2019-01-30 19:51 | PROGRESS NOTE ---
DATE: 01/29/2019 SUBJECTIVE: Patient continues to do the same. He has not changed from previous rounding. OBJECTIVE: Vital signs all remain stable. No new laboratory data has been obtained, however a CT of the head and neck showed a complete occlusion of the proximal ICA on the left. The cervical ICA remains diminutive thereafter. Thread-like filling defect seen in the inner cranial carotid, syphon on the left that extends up and involves the MCA, which is probably a thrombus. This was called to me as a critical during the beginning of the shift. ASSESSMENT AND PLAN: Cerebrovascular accident involving the left MCA area. I spoke to Dr. Moody with [facility] within the Neurology Department. He recommended antiplatelet therapy, that there was not more to do at this time. We will continue to treat and evaluate all other problems. Further recommendations depending upon the patient's clinical course. Dictated by SILVANO Frias for Herb Horan MD cc: SILVANO Frias MD
[2019-01-30] MEDS: LIPITOR PO SCH (21:01)
[2019-01-31] MEDS: HUMULIN R (PARKWAY) SUBQ SCH ×3 (06:08→16:05)
[2019-01-31 06:38] LABS: AGAP 10; BUN 10 mg/dL (8-22); CALCIUM 8.7 mg/dL (8.8-10.2); CHLORIDE 104 mmol/L (98-107); COSMO 276; CREATININE 0.9 mg/dL (0.7-1.2); ESTIMATED GFR > 60; GLUCOSE 116 mg/dL (70-104); POTASSIUM 3.9 mmol/L (3.5-5.1); SODIUM 138 mmol/L (136-145); TCO2 24 mmol/L (25-35)
--- NOTE | 2019-01-31 07:26 | GENERAL SURGERY PROGRESS NOTE ---
DATE: 01/31/2019 Discussed case with nurse taking care of him. He seems to be doing about the same. He does have a little bit increased weakness in his right upper extremity compared to yesterday. Otherwise, he is doing about the same. From a surgical point of view, he has got a complete occlusion of his left internal carotid, so no surgical intervention planned. We will just have to continue supportive care. cc: Sunny Stern MD
--- NOTE | 2019-01-31 07:52 | PROGRESS NOTE ---
DATE: 01/31/2019 SUBJECTIVE: The patient is resting comfortably in bed. He is able to move his right lower extremity, around 3/5 strength, but today he is not moving his right upper extremity. He was able to move it a little bit yesterday. He is eating by himself as per report. I will add a blood pressure medication since his blood pressure has been in the 150s. OBJECTIVE: Vital Signs: Temperature 98.8 degrees, pulse 98, respiratory rate 21, blood pressure 155/88, oxygen saturation 98%. HEENT: Head normocephalic, no trauma. PERRLA. Neck: Supple no JVD. Central trachea. Some facial deviation. Chest: Clear to auscultation. No wheezing. No rales. Abdomen: Soft, nontender, nondistended. No hepatosplenomegaly. Extremities: No edema, no clubbing, no cyanosis. Neurological: This patient is alert. He is following commands. He has aphasia. He is not able to communicate or answer my questions. Strength, right upper extremity is about 0/5, right lower extremity 3/5. No issues on the left side. LABORATORY DATA: Sodium 138, potassium 3.9, chloride 104, bicarbonate 24, BUN 10, creatinine 0.9, glucose 116, calcium 8.7. ASSESSMENT AND PLAN: 1. Cerebrovascular accident involving the left middle cerebral artery territory. There is a complete occlusion of the internal carotid artery as well. We communicated with [facility] and talked to Neurology Department. They have recommended to continue basically with antiplatelet medication. We will continue with physical therapy. He is tolerating by mouth. 2. Type 2 diabetes. Hemoglobin A1c of 5.1. Blood sugar under control. 3. Hypertension. I will add amlodipine to his medications. He is already on lisinopril. We will continue to monitor. 4. History of chronic obstructive pulmonary disease, not in exacerbation, aware. 5. Obesity with a body mass index above 33. Diet will be recommended. 6. Dyslipidemia. Continue with statins. 7. This patient seems to be stable. I will transfer this patient to a step-down unit. We need aggressive physical therapy. cc: Tomás Elaine MD
[2019-01-31] MEDS ORDERED: NORVASC PO SCH (09:00)
[2019-01-31] MEDS: ASPIRIN PO SCH (09:55)
[2019-01-31] MEDS: NS 1,000 ML IV SCH ×2 (09:55→17:49)
[2019-01-31] MEDS: PRINIVIL PO SCH (09:56)
[2019-01-31] MEDS: PLAVIX PO SCH (09:56)
[2019-01-31] MEDS: TYLENOL PO PRN ×2 (11:55→20:31)
[2019-01-31] MEDS: LIPITOR PO SCH (20:31)
[2019-01-31] MEDS: NORVASC PO SCH (20:31)
[2019-01-31] MEDS: HUMULIN R SUBQ SCH (21:24)
[2019-02-01] MEDS: NS 1,000 ML IV SCH ×2 (04:35→13:12)
[2019-02-01] MEDS: HUMULIN R SUBQ SCH ×4 (06:14→21:03)
--- NOTE | 2019-02-01 08:02 | PROGRESS NOTE ---
DATE: 02/01/2019 SUBJECTIVE: This patient is resting in bed. He is able to move his right lower extremity but compared with yesterday, I think his strength decreased from 3/5 to 2/5. He is still able to move his right upper extremity today, but he was able to move it a little bit 2 days ago. He is eating, no signs of dysphagia. I started treating his blood pressure but still elevated. I will add hydralazine. OBJECTIVE: Vital Signs: Temperature 97.6 degrees, pulse 89, respiratory rate 16, blood pressure 156/84, oxygen saturation 99 on room air. HEENT: Head normocephalic. No trauma. PERRLA. Neck: Supple. No JVD. No masses. Central trachea. Some facial deviation. Chest: Clear to auscultation. No wheezing. No rales. Abdomen: Soft, nontender. Protuberant, nondistended. No hepatosplenomegaly. Extremities: No edema, no clubbing, no cyanosis. Neurological: The patient is alert. He is following commands. He has aphasia, he is unable to communicate or answer any of my questions but he understands. Strength right upper extremity 0/5, right lower extremity 2/5. No issues on the left side. LABORATORY DATA: Glucose 123. ASSESSMENT AND PLAN: 1. Cerebrovascular accident involving the left middle cerebral artery territory. There is a complete occlusion of the internal carotid artery as well. We communicated with [facility] and talked to Neurology Department. They recommended to continue basically with antiplatelet medication. Will continue physical therapy. He is tolerating p.o. Pending MRI and carotic ultrasound. 2. Type 2 diabetes. Hemoglobin A1c is good at 5.5, blood sugar under control. 3. Hypertension. I will add hydralazine to his medications. The blood pressure is still elevated. 4. History of chronic obstructive pulmonary disease, not in exacerbation. 5. Obesity with a body mass index above 33, diet and physical activity has been recommended. 6. Dyslipidemia. Continue with statins. 7. The patient seems to be stable but we need to find out extension of the lesion, pending MRI and Neurology evaluation. cc: Tomás Elaine MD
[2019-02-01] MEDS: NON-FORMULARY BULK MED INH SCH ×2 (08:12)
--- NOTE | 2019-02-01 08:47 | CONSULTATION ---
DATE OF CONSULTATION: 02/01/2019 SUBJECTIVE: Mr. Romero is 68 years old and there is evidence of stroke. History from the patient is difficult because of his dysphasia. History from the hospital chart and discussion with attentive family at the bedside is that he began complaining of transient right arm weakness, right arm numbness, vision disturbance which may have been right-sided. These episodes were approximately 15 minutes each and began occurring 2 months ago. Episodes have become gradually more frequent to the point he was having 1 or 2 spells per day in the last week or so. He saw an chiseler head and got some glasses. Episodes continued. Family noticed that he was dragging his right leg several days ago. He had trouble finding his words. To the best of their knowledge, this is the first time there was associated language difficulty. He presented to the hospital and was admitted. He seemed a little bit better the second day of admission and then seemed unable to communicate in the last day or 2. He has risk factors including hypertension, dyslipidemia, diabetes mellitus. He quit smoking cigarettes 20 years ago. There is no history of prior stroke. There is history of some head injuries, but no history of brain injury. Workup here includes CT angiogram showing evidence of complete left internal carotid occlusion with distal reconstitution and significant left MCA stenosis. Brain MRI is ordered. Systolic blood pressures have been 130s-170s over the last few days. OBJECTIVE: On exam, Mr. Romero is awake, alert, attentive. He did not follow commands. When I asked him to hold up 2 fingers, he raised his hand, turned it, pronated and supinated, but did not hold up fingers. He did not open and close eyes or protrude tongue to command. He said a few words but did not make sentences. He did not repeat. He did not name. There is blink with visual threat approaching from the left better than from the right. Facial motility is diminished on the right in an upper motor neuron pattern. Tongue is midline. He used his left arm and leg purposefully. He moved his right leg spontaneously. I did not see him move his right arm spontaneously. Tone is increased in the right arm. He did well with left [id number]. He had similar withdrawal and grimace with pinprick over the left foot and right foot. He did not withdraw or grimace with pinprick over the right hand. Reflexes are 2+ at the ankles bilaterally. Plantar response is silent bilaterally. IMPRESSION AND PLAN: Right hemiparesis, possibly right hemianopia, global dysphasia. By report, he had episodes over a few months with probable crescendo pattern of transient ischemic attack and now presents with evidence of complete left internal carotid occlusion with distal reconstitution but significant left middle cerebral artery stenosis. CT findings on admission were minimal. Brain MRI is planned soon. I would try to maintain adequate blood pressure, treat blood sugar and lipids aggressively, continue aspirin and clopidogrel and follow clinically until MRI is reported. Further plans will depend on his clinical course and the MRI report. Thanks for asking Neurology to see Mr. Romero. cc: Chu Hanna III, MD MTDD
[2019-02-01] MEDS: ASPIRIN PO SCH (09:18)
[2019-02-01] MEDS: PLAVIX PO SCH (09:18)
[2019-02-01] MEDS: NORVASC PO SCH ×2 (09:18→20:53)
[2019-02-01] MEDS: PRINIVIL PO SCH (09:18)
[2019-02-01] MEDS: TYLENOL PO PRN ×2 (09:19→19:38)
[2019-02-01] MEDS: APRESOLINE PO SCH ×3 (09:19→20:54)
--- NOTE | 2019-02-01 13:04 | Diag Imaging Result Doc PS360 ---
MRI BRAIN W/WO CONTRAST - 01/29/2019 INDICATION: stroke COMPARISON: Head CT 01/28/2019 FINDINGS: There is a huge area of restricted diffusion of the left cerebral hemisphere. This involves essentially the entire middle cerebral artery territory. There is also periventricular, basal ganglia, and left thalamic involvement. There is severe swelling with mass effect. There is midline shift to the right by 13.3 mm. There are scattered areas of microvascular disease throughout both cerebral hemispheres. No abnormal contrast enhancement. IMPRESSION: Large recent infarction of the left cerebral hemisphere. Significant midline shift to the right. Electronically signed by Nithin Gee 02/01/2019 1:02 PM
--- NOTE | 2019-02-01 13:08 | Diag Imaging Result Doc PS360 ---
MRA BRAIN W/O CONTRAST - 01/29/2019 INDICATION: stroke TECHNIQUE: Noncontrast [id number] technique was used COMPARISON: CT angiogram 01/29/2019 FINDINGS: There has been complete resolution of the small obstructing thrombus in the proximal intracanalicular portion of the left internal carotid artery. There is stable significant eccentric atherosclerotic plaque in the canalicular portion of the left internal carotid artery. This causes moderate stenosis of about 50%. There is similar atherosclerotic plaque buildup in the intracanalicular portion of the right internal carotid artery. The cavernous and clinoid portions of the internal carotid arteries are patent bilaterally. The anterior and middle cerebral arteries are patent bilaterally. The basilar artery is small. There is origin of the left posterior cerebral artery. The right posterior cerebral artery demonstrates conventional anatomy. IMPRESSION: Resolution of the small focal occluding thrombus of the left internal carotid artery. Significant atherosclerotic plaque buildup of both internal carotid arteries and the carotid canals. Electronically signed by Nithin Gee 02/01/2019 1:06 PM
[2019-02-01] MEDS: LIPITOR PO SCH (20:53)
[2019-02-01] MEDS: MIRALAX PO SCH (20:54)
[2019-02-02] MEDS: HUMULIN R SUBQ SCH ×4 (06:38→22:00)
[2019-02-02 07:04] LABS: BASO# 0.03 X1000 (0.0-0.2); BASO% 0.3 % (0.0-0.8); EOS# 0.19 X1000 (0.0-0.7); EOS% 1.9 % (0.0-10.0); HEMATOCRIT 46.2 % (42.0-52.0); HEMOGLOBIN 16.7 g/dL (14.0-18.0); IMM GRAN# 0.02 X1000 (0.0-0.04); IMM GRAN% 0.2 % (0.0-0.5); LYMPH# 1.59 X1000 (1.2-3.4); LYMPH% 16.1 % (20.5-51.1); MCH 30.9 PG (27-31); MCHC 36.1 g/dL (33-37); MCV 85.4 FL (81-99); MONO# 0.97 X1000 (0.11-0.59); MONO% 9.8 % (1.7-9.3); MPV 10.4 FL (7.4-10.4); NEUT# 7.08 X1000 (1.4-6.5); NEUT% 71.7 % (42.2-75.2); PLT 243 X1000 (130-400); RBC 5.41 XMIL (4.7-6.1); RDW 13.7 % (11.5-14.5); WBC 9.88 X1000 (4.8-10.8)
[2019-02-02 07:28] LABS: AGAP 11; BUN 12 mg/dL (8-22); CALCIUM 8.8 mg/dL (8.8-10.2); CHLORIDE 105 mmol/L (98-107); COSMO 276; CREATININE 0.8 mg/dL (0.7-1.2); ESTIMATED GFR > 60; GLUCOSE 113 mg/dL (70-104); POTASSIUM 3.8 mmol/L (3.5-5.1); SODIUM 138 mmol/L (136-145); TCO2 22 mmol/L (25-35)
[2019-02-02] MEDS: NON-FORMULARY BULK MED INH SCH (08:02)
[2019-02-02] MEDS: ASPIRIN PO SCH (08:34)
[2019-02-02] MEDS: APRESOLINE PO SCH ×3 (08:34→20:04)
[2019-02-02] MEDS: TYLENOL PO PRN ×2 (08:34→14:32)
[2019-02-02] MEDS: MIRALAX PO SCH ×2 (08:35→20:04)
[2019-02-02] MEDS: NORVASC PO SCH ×2 (08:35→20:04)
[2019-02-02] MEDS: PRINIVIL PO SCH (08:35)
[2019-02-02] MEDS: PLAVIX PO SCH (08:35)
--- NOTE | 2019-02-02 11:59 | PROGRESS NOTE ---
DATE: 02/02/2019 SUBJECTIVE: This patient is resting in bed. Today, he was able to move his right thumb and index finger, but he is not able to move the rest of the right upper extremity. His strength in the right lower extremity is about 2 to 3/5. He is able to move his left side, and I do not see any problem with that. I added hydralazine to his blood pressure yesterday, and it seems to be working better. I will monitor. OBJECTIVE: Vital Signs: Temperature 98.1 degrees, pulse 96, respiratory rate 20, blood pressure 133/70, and oxygen saturation 97% on room air. HEENT: Head normocephalic. No trauma. PERRLA. Neck: Supple. No JVD. No masses. Central trachea. Some facial deviation. Chest: Clear to auscultation. No wheezing. No rales. Abdomen: Soft and nontender. Protuberant. Nondistended. No hepatosplenomegaly. Extremities: No edema. No clubbing. No cyanosis. Neurological: The patient is alert. He is following commands. He has aphasia. He is unable to communicate or answer any of my questions, but he is able to understand. Strength in the right upper extremity is around 0/5, but he is able to move his thumb and index fingers a little bit. His right lower extremity is around 2 to 3/5 today. No issues on the left side. LABORATORY: WBC 9.8, hemoglobin 16.7, hematocrit 46.2, and platelets 243,000. Sodium 138, potassium 3.8, chloride 105, bicarbonate 22, BUN 12, creatinine 0.8 glucose 113, and calcium 8.8. ASSESSMENT AND PLAN: 1. 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 We do have the MRI result that showed a large recent infarction of the left cerebral hemisphere significant midline shift to the right by 13.3 mm. We will continue with aspirin and Plavix. Also, Lipitor and blood pressure medication. His blood pressure seems to be better controlled. Neurology Department on board. I will follow their recommendations. Hopefully, this patient will be discharged to a rehab center. 2. Type 2 diabetes. Hemoglobin A1c is good at 5.5. Blood sugar under control. 3. Hypertension. Like I mentioned before, I have added hydralazine to his medication. Blood pressure looks better. We will monitor for now. 4. History of chronic obstructive pulmonary disease not in exacerbation. 5. Obesity with a body mass index of above 30. Diet and physical therapy has been recommended. 6. Dyslipidemia. Continue with statins. 7. 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 Case discussed with Dr. Stern, and he will re-evaluate the patient. cc: Tomás Elaine MD
--- NOTE | 2019-02-02 15:41 | PROGRESS NOTE ---
DATE: 02/02/2019 Mr. Romero has been sleepy through the day. He has had some headache and family believes acetaminophen has been adequate for management. Brain MRI showed large left middle cerebral territory infarction. Brain MRA shows left internal carotid stenosis, but does not show the left internal carotid occlusion, which was apparent on CT angiogram and carotid ultrasound yesterday. Systolic blood pressures have ranged 110s to 150s. I discussed typical time frame for cerebral edema, and potential for obtundation with family at the bedside. In light of the extensive area of infarction, I do not think there is any urgent management indicated now. We need to continue providing adequate blood pressure, continue aggressive management of other risk factors, and follow clinically. We might repeat carotid imaging later, but his clinical situation is such that I do not think any urgent intervention is going to be warranted regardless of the repeat carotid findings. Thanks for asking Neurology to see Mr. Romero. cc: Chu Hanna III, MD MTDD
[2019-02-02] MEDS: LIPITOR PO SCH (20:04)
--- NOTE | 2019-02-03 02:35 | GENERAL SURGERY PROGRESS NOTE ---
DATE: 02/02/2019 SUBJECTIVE: I was asked to see Mr. Romero by Dr. Stern. This unfortunate gentleman is 68 and came in with right hemiplegia. Imaging reveals a left hemispheric stroke. His carotid imaging showed occlusion of his left internal carotid, there was some question of patency on an MRA however. He currently is aphasic, he cannot move his right arm, he can move his right leg somewhat. ASSESSMENT AND PLAN: Acute left hemispheric stroke in the distribution of the middle cerebral artery. There is no intervention indicated at this time because of his acute stroke. He should simply be supported and go to rehabilitation in hope that he will regain some function. cc: Guy Chino MD
[2019-02-03] MEDS: HUMULIN R SUBQ SCH ×2 (06:20→12:40)
[2019-02-03] MEDS: NON-FORMULARY BULK MED INH SCH (07:47)
[2019-02-03] MEDS ORDERED: APRESOLINE PO SCH (09:00)
[2019-02-03] MEDS: ASPIRIN PO SCH (10:28)
[2019-02-03] MEDS: MIRALAX PO SCH (10:28)
[2019-02-03] MEDS: PRINIVIL PO SCH (10:29)
[2019-02-03] MEDS: NORVASC PO SCH (10:29)
[2019-02-03] MEDS: PLAVIX PO SCH (10:34)
--- NOTE | 2019-02-03 10:37 | PROGRESS NOTE ---
DATE: 02/03/2019 SUBJECTIVE: The patient is resting in bed. He is able to move his hand a little bit more today. Right lower right extremity about the same compared with yesterday. The plan is to send this patient to a rehab center. OBJECTIVE: Vital Signs: Temperature 98.5 degrees, pulse 90, respiratory rate 18, blood pressure 136/79, oxygen saturation 99 on room air. HEENT: Head normocephalic. No trauma. PERRLA. Neck: Supple. No JVD. No masses. Central trachea. Chest: Clear to auscultation. No wheezing. No rales. Abdomen: Soft, nontender, nondistended. No hepatosplenomegaly. Extremities: No edema. No clubbing. No cyanosis. Neurological: This patient is alert. He has aphasia. He is not able to communicate or answer any of my questions, but he is able to understand. Strength in the right upper extremity is around 0/5, but he is able to move some of his fingers. His right lower extremity is around 2/5 and no issues on the left side. LABORATORY: Glucose 111. ASSESSMENT AND PLAN: 1. Cerebrovascular accident involving the left middle cerebral artery territory. MRI showed a large recent infarct of the left cerebral hemisphere and significant midline shift to the right by 13.3 mm. Will continue with aspirin, Plavix. Continue with Lipitor and blood pressure medication, which I will have increased today to try to bring it down a little bit more. Neurology Department on board. I will continue following their recommendations. The plan is to send this patient to a rehab center. 2. Type 2 diabetes. Hemoglobin A1c is good at 5.1. Blood sugar under control. 3. Hypertension. Like I mentioned before, I will increase the dose of hydralazine today to try to control a little bit better his blood pressure. 4. History of chronic obstructive pulmonary disease, not in exacerbation. 5. Obesity with a body mass index of above 30. Diet and physical therapy have been recommended. 6. Dyslipidemia. Continue with statins. 7. MRA showed resolution of the small focal occlusion, thrombosed of the left internal carotid artery, but significant atherosclerotic plague build up of both internal carotid arteries and the carotid canals. Case has been discussed with Surgery Department. For now, will continue with same management, no intervention. cc: Tomás Elaine MD
--- NOTE | 2019-02-03 11:30 | DISCHARGE SUMMARY ---
ADMISSION DATE: 01/28/2019 DISCHARGE DATE: 02/03/2019 DISCHARGE DIAGNOSES: 1. Large recent infarction of the left cerebral hemisphere with significant midline shift to the right by 13.3 mm. 2. Type 2 diabetes, controlled. Hemoglobin A1c 5.5. 3. Hypertension. 4. History of chronic obstructive pulmonary disease, not in exacerbation. 5. Obesity with a body mass index above 30. 6. Dyslipidemia. 7. Carotid vascular disease. PROCEDURES PERFORMED: 1. Chest x-ray dated 01/28/2019 impression: No evidence of acute disease. 2. Head CT scan dated 01/28/2019 impression: Apparent old lacunar infarct at left caudate nucleus. 3. Brain MRA dated 01/29/2019 impression: Resolution of the small focal occluding thrombus of the left internal carotid artery, significant atherosclerotic plaque build up of both internal carotid arteries and the carotid canals. 4. MRI dated 01/29/2019 impression: Large recent infarction of the left cerebral hemisphere, significant midline shift to the right. 5. Carotid Doppler ultrasound dated 01/29/2019 impression: Bilateral atherosclerotic disease as described with complete occlusion of the left ICA. 6. Head and neck CT scan dated 01/29/2019 impression: Focal complete occlusion of the proximal ICA of the left with reconstruction. However, the cervical ICA remains diminutive thereafter, thread-like filling defect seen in the intracranial carotid siphon on the left that extends up and involves the left MCA, probably represents thrombus. Significant truncation of the left MCA distal branches, mainly involving the left parietal lobe. This is probably an area of acute infarct. CONSULTATION: 1. Surgery Department, Dr. Stern/Dr. Chino. 2. Neurology Department, Dr. Hanna. HOSPITAL COURSE: A 68-year-old male admitted on 01/28/2019 due to right-sided weakness that has been worsening over the past couple months apparently. The family at the bedside state that two days before he was out in his shed. He was working. It started getting very hot, decided to come in, and was only able to make it to the door into the house without having to sit down on the floor. The family states that a few months ago he started having some of the symptoms of the right-sided weakness where he would have these spells where he was extremely weak and was unable to move his right lower extremity at times. The family and the patient denied any confusion, any difficulty with speech or altered mental status. He has a past medical history of hypertension, diabetes, COPD, hyperlipidemia. The family states that they noticed the day of admission on 01/28/2019 and the day before that he was having some problem getting out some words. The patient at the moment of the evaluation was laying in the ER bed. He was awake, alert, and oriented. He was unable to answer questions because he was not able to talk. There is no droop noted, but he has a large amount of weakness noted on the right hand and right leg area. Pupils were equal, round, reactive to light. Apparently, the patient's speech was not slurred. He denied any chest pain, palpitation, difficulty urinating or hematuria. No constipation or diarrhea. No nausea, no vomiting. No edema at the level of the lower extremities. Head and neck CT scan and carotid Doppler ultrasound showed an occlusion of the proximal ICA. Surgery Department was consulted, but they managed these without any kind of surgical intervention at this point. MRI showed a very large recent infarction of the left cerebral hemisphere and significant midline shift to the right, and the MRA showed a resolution of small focal in occluding thrombus of the left internal carotid artery. Significant atherosclerotic plaque build up of both internal carotid arteries and the carotid canals. He was transferred from [facility] to [facility], and apparently upon admission he was able to talk, but when we received the patient in the ICU he was not able to talk, he was aphasic. At this point, he is able to move a little bit, maybe 2/5 strength his right lower extremity, and he is able to move some of the fingers of the hand on the right side, but he is not able to lift the arm. Strength 0/5. He was evaluated by Surgery Department and Neurology Department. We will continue with antiplatelet medication and statin and controlling his blood pressure. We had a large discussion with the patient and the family at the bedside. I showed them the images and they seem to understand all the prognosis and all the problems that we are having with this patient. We recommended to send this patient to a rehab center and they agree with that. Today this patient will be discharged. He does not have dysphagia. He is able to eat without any problem. He seems to be stable. PHYSICAL EXAMINATION: Vital Signs: Temperature 98.5 degrees, pulse 90, respiratory rate 18, blood pressure 136/79, oxygen saturation 99 on room air. HEENT: Head normocephalic, no trauma. PERRLA. Neck: Supple. No JVD. No masses. Central trachea. Chest: Clear to auscultation. No wheezing. No rales. Abdomen: Soft, nontender, nondistended. No hepatosplenomegaly. Extremities: No edema. No clubbing. No cyanosis. Neurological examination: He is not able to talk. He is aphasic. Strength on the right upper extremity is 0/5, but he is able to move a little bit some of the fingers, especially thumb and index finger. Right lower extremity strength 2/5. He is following commands. LABORATORY: Labs done yesterday: WBC 9.8, hemoglobin 16.7, hematocrit 46.2, platelets 243. Sodium 138, potassium 3.8, chloride 105, bicarbonate 22. BUN 12, creatinine 0.8, glucose 113, calcium 8.8. DISCHARGE MEDICATIONS: Tylenol 650 mg p.o. q. 6 hours as needed, amlodipine 5 mg p.o. b.i.d., aspirin 325 mg p.o. daily, Lipitor 40 mg p.o. at bedtime, Plavix 75 mg p.o. daily, exenatide microspheres as directed, fluticasone/umeclidinium/vilanterol 100/62.5/25 one puff inhaler daily, hydralazine 50 mg p.o. 3 times a day, lisinopril 20 mg p.o. daily, metformin 500 mg p.o. b.i.d. and MiraLAX 17 g p.o. b.i.d. DISCHARGE DISPOSITION: He will be discharged to a rehab center. Follow up with the primary care doctor in 2 to 3 weeks, and also follow up with Neurology Department, Dr. Hanna, in 3 to 4 weeks. The patient seems to be stable, but needs aggressive rehabilitation. TIME DISCHARGING THIS PATIENT: 35 minutes. cc: Tomás Elaine MD
[2019-02-03 11:46] VITALS: BP 134/75
== END 2019-02-03 14:25 | DRG 64 ==
LOC: P.ED 12:29 → SUATTDRO 12:30 → P.MEDSURG 18:13 → ICU 01-29 15:19 → 2N 01-31 17:15
PROVIDERS: ATTEND Internal Medicine